=== PATIENT | male | born 1940 | race Caucasian/White ===

== ENCOUNTER → 2018-12-11 08:46 | Outpatient (BNVA) | payer MEDICARE, OTHER, SELFPAY | PROVIDERS: PCP Family Medicine; Visit Provider Urology | DX: R97.20 Elevated prostate specific antigen [PSA] (principal) | CPT/HCPCS: 99213 ==

== ENCOUNTER 2018-12-11 09:56 | Outpatient (CLI) | payer MEDICARE, OTHER, SELFPAY ==
[2018-12-13 11:55] LABS: PSA, Diagnostic 7.5 ng/ml (0-6.5)
== END 2018-12-11 10:16 ==
PROVIDERS: PCP Family Medicine; Visit Provider Urology
DX: R97.20 Elevated prostate specific antigen [PSA] (principal)
CPT/HCPCS: 36415; 99213; 84153

== ENCOUNTER → 2019-01-12 12:19 | Outpatient (BNVA) | payer MEDICARE, OTHER, SELFPAY | PROVIDERS: PCP Family Medicine; Visit Provider Urology | DX: R80.9 Proteinuria, unspecified (principal) | CPT/HCPCS: 99212; 99213 ==

== ENCOUNTER 2019-02-23 01:38 | Outpatient (CLI) | payer MEDICARE, OTHER, SELFPAY ==
--- NOTE | 2019-02-23 14:15 | DI.US_ITS ---
SYMPTOMS/DIAGNOSIS: OBSTRUCTIVE VERSUS MEDICAL RENAL DISEASE RENAL ULTRASOUND: The right kidney measures 10.3 cm long. No evidence of obstruction is seen. There is mild thinning of the cortex. There is a question of an echogenic focus in the mid pole of the right kidney suspicious for a nonobstructing stone. The left kidney measures 11.2 cm long. There is a 1.1 cm simple cyst in the mid pole of the left kidney. No solid renal mass, calculus or obstruction is identified. Prevoid urinary bladder volume is 140 cc. Both ureteral jets are visualized. No intraluminal masses are present. Postvoid urinary bladder volume is 30 cc. The prostatic volume is 48 cc. IMPRESSION: 1. Mild prostate enlargement. 2. Question of a nonobstructing stone in the right kidney. 3. A 1.1 cm simple cyst on the left kidney.
== END 2019-02-23 01:58 ==
PROVIDERS: PCP Family Medicine; Visit Provider Urology
DX: R80.9 Proteinuria, unspecified (principal); N40.0 Benign prostatic hyperplasia without lower urinary tract symptoms; N28.1 Cyst of kidney, acquired
CPT/HCPCS: 76770; 99213

== ENCOUNTER → 2019-06-19 08:06 | Outpatient (BNVA) | payer MEDICARE, OTHER, SELFPAY | PROVIDERS: PCP Family Medicine; Visit Provider Urology | DX: R35.1 Nocturia (principal); R97.20 Elevated prostate specific antigen [PSA]; R80.9 Proteinuria, unspecified; J44.9 Chronic obstructive pulmonary disease, unspecified | CPT/HCPCS: 99213 ==

== ENCOUNTER 2019-12-17 11:06 | Outpatient (CLI) | payer MEDICARE, OTHER, SELFPAY ==
[2019-12-17 11:57] LABS: Bilirubin Negative (Negative); Blood Negative (Negative); Clarity Clear (Clear); Glucose Negative (Negative); Ketones Negative (Negative); Leukocyte Esterase Negative (Negative); Nitrite Negative (Negative); Urobilinogen 0.2 EU/dL (Up TO 0.2); pH 6.5 (5-8)
[2019-12-17 12:10] LABS: Bacteria Rare HPF (Negative); C & S Indicated? Yes; Casts Negative LPF (Negative); Crystals Negative HPF (Negative); Epithelial Cells Rare HPF (Negative); Mucus Trace (Negative); RBC Negative HPF (0-2)
[2019-12-18 10:57] LABS: PSA, Diagnostic 9.7 ng/mL (0.0-6.5)
== END 2019-12-17 11:26 ==
PROVIDERS: PCP Family Medicine; Visit Provider Urology
DX: R80.9 Proteinuria, unspecified (principal); R97.20 Elevated prostate specific antigen [PSA]; Z12.5 Encounter for screening for malignant neoplasm of prostate
CPT/HCPCS: 36415; 81003; 81015; 84153; 87086

== ENCOUNTER → 2020-01-25 13:47 | Outpatient (BNVA) | payer MEDICARE, OTHER, SELFPAY | PROVIDERS: PCP Family Medicine; Referring Provider Family Medicine; Visit Provider Urology | DX: R97.20 Elevated prostate specific antigen [PSA] (principal); N40.1 Benign prostatic hyperplasia with lower urinary tract symptoms; R35.0 Frequency of micturition | CPT/HCPCS: 99213 ==

== ENCOUNTER → 2020-03-25 14:55 | Outpatient (BNVA) | payer MEDICARE, OTHER, SELFPAY | PROVIDERS: PCP Family Medicine; Referring Provider Family Medicine; Visit Provider Urology | DX: R39.9 Unspecified symptoms and signs involving the genitourinary system (principal) | CPT/HCPCS: 99213; 99441 ==

== ENCOUNTER → 2020-06-19 12:39 | Outpatient (BNVA) | payer MEDICARE, OTHER, SELFPAY | PROVIDERS: PCP Family Medicine; Referring Provider Family Medicine; Visit Provider Urology | DX: R31.0 Gross hematuria (principal); Z87.891 Personal history of nicotine dependence; J44.9 Chronic obstructive pulmonary disease, unspecified | CPT/HCPCS: 52000; 99213 ==

== ENCOUNTER → 2020-07-25 13:58 | Outpatient (BNVA) | payer MEDICARE, OTHER, SELFPAY | PROVIDERS: PCP Family Medicine; Referring Provider Family Medicine; Visit Provider Urology | DX: R31.0 Gross hematuria (principal); R39.9 Unspecified symptoms and signs involving the genitourinary system | CPT/HCPCS: 81003; 99213 ==

== ENCOUNTER → 2021-04-14 09:41 | Outpatient (BNVA) | payer MEDICARE, OTHER, SELFPAY | PROVIDERS: PCP Family Medicine; Referring Provider Family Medicine; Visit Provider Nurse Practitioner Gerontology | DX: R31.0 Gross hematuria (principal); R97.20 Elevated prostate specific antigen [PSA]; N40.1 Benign prostatic hyperplasia with lower urinary tract symptoms; R35.0 Frequency of micturition; R39.15 Urgency of urination | CPT/HCPCS: 81003; 99214 ==

== ENCOUNTER 2021-04-14 18:31 | Outpatient (REF) | payer MEDICARE, OTHER, SELFPAY ==
[2021-04-14 17:09] LABS: PSA, Diagnostic 10.6 ng/mL (0.0-6.5)
== END 2021-04-14 18:32 | disposition home or self-care (01) ==
LOC: LBN 18:31
PROVIDERS: PCP Family Medicine; Visit Provider Nurse Practitioner Gerontology
DX: R31.0 Gross hematuria (principal); R39.89 Other symptoms and signs involving the genitourinary system; R97.20 Elevated prostate specific antigen [PSA]
CPT/HCPCS: 84153

== ENCOUNTER 2022-04-15 03:35 | Outpatient (CLI) | payer MEDICARE, OTHER, SELFPAY ==
[2022-04-15 23:07] LABS: PSA, Diagnostic 12.4 ng/mL (<=6.5)
== END 2022-04-15 03:36 | disposition home or self-care (01) ==
PROVIDERS: PCP Family Medicine; Visit Provider Nurse Practitioner Gerontology
DX: R31.0 Gross hematuria (principal); R39.89 Other symptoms and signs involving the genitourinary system; R97.20 Elevated prostate specific antigen [PSA]
CPT/HCPCS: 36415; 84153

== ENCOUNTER → 2022-04-21 15:08 | Outpatient (BNVA) | payer MEDICARE, OTHER, SELFPAY | PROVIDERS: PCP Family Medicine; Referring Provider Family Medicine; Visit Provider Nurse Practitioner Gerontology | DX: N40.1 Benign prostatic hyperplasia with lower urinary tract symptoms (principal); R35.0 Frequency of micturition; R31.0 Gross hematuria; R97.20 Elevated prostate specific antigen [PSA] | CPT/HCPCS: 51798; 81003; 99214 ==

== ENCOUNTER 2022-08-31 01:52 | Outpatient (CLI) | payer MEDICARE, OTHER, SELFPAY ==
[2022-08-31 23:09] LABS: PSA, Diagnostic 14.5 ng/mL (<=6.5)
== END 2022-08-31 01:53 | disposition home or self-care (01) ==
LOC: LBO 01:52
PROVIDERS: PCP Family Medicine; Visit Provider Nurse Practitioner Gerontology
DX: R31.0 Gross hematuria (principal); R39.89 Other symptoms and signs involving the genitourinary system; R97.20 Elevated prostate specific antigen [PSA]
CPT/HCPCS: 36415; 84153

== ENCOUNTER → 2022-09-14 08:15 | Outpatient (BNVA) | payer MEDICARE, OTHER, SELFPAY | PROVIDERS: PCP Family Medicine; Referring Provider Family Medicine; Visit Provider Nurse Practitioner Gerontology | DX: N40.1 Benign prostatic hyperplasia with lower urinary tract symptoms (principal); R97.20 Elevated prostate specific antigen [PSA]; R31.0 Gross hematuria | CPT/HCPCS: 51798; 99214 ==

== ENCOUNTER 2023-02-25 13:41 | Outpatient (CLI) | payer MEDICARE, SELFPAY ==
[2023-02-25 23:18] LABS: PSA, Diagnostic 13.9 ng/mL (<=6.5)
== END 2023-02-25 13:42 | disposition home or self-care (01) ==
PROVIDERS: PCP Family Medicine; Visit Provider Nurse Practitioner Gerontology
DX: R97.20 Elevated prostate specific antigen [PSA] (principal); R39.89 Other symptoms and signs involving the genitourinary system
CPT/HCPCS: 36415; 84153

== ENCOUNTER → 2023-03-08 08:21 | Outpatient (BNVA) | payer MEDICARE, SELFPAY | PROVIDERS: PCP Family Medicine; Visit Provider Nurse Practitioner Gerontology | DX: R39.89 Other symptoms and signs involving the genitourinary system (principal); R31.0 Gross hematuria; R97.20 Elevated prostate specific antigen [PSA] | CPT/HCPCS: 51798; 99213 ==

== ENCOUNTER → 2024-03-27 08:07 | Outpatient (BNVA) | payer MEDICARE, SELFPAY | PROVIDERS: PCP Family Medicine; Referring Provider Family Medicine; Visit Provider Podiatrist | DX: L60.0 Ingrowing nail (principal); L84 Corns and callosities; M79.674 Pain in right toe(s); M79.675 Pain in left toe(s); I70.203 Unspecified atherosclerosis of native arteries of extremities, bilateral legs | CPT/HCPCS: 17110; 99213 ==

== ENCOUNTER → 2024-10-10 14:20 | Outpatient (BNVA) | payer MEDICARE, SELFPAY | PROVIDERS: PCP Family Medicine; Referring Provider Family Medicine; Visit Provider Podiatrist | DX: L60.0 Ingrowing nail (principal); I70.203 Unspecified atherosclerosis of native arteries of extremities, bilateral legs; I73.89 Other specified peripheral vascular diseases; M79.671 Pain in right foot | CPT/HCPCS: 11750 ==

== ENCOUNTER → 2024-10-30 13:09 | Outpatient (BNVA) | payer MEDICARE, SELFPAY | PROVIDERS: PCP Family Medicine; Referring Provider Family Medicine; Visit Provider Podiatrist | DX: L60.0 Ingrowing nail (principal); I70.203 Unspecified atherosclerosis of native arteries of extremities, bilateral legs; I73.89 Other specified peripheral vascular diseases; M79.671 Pain in right foot; B35.1 Tinea unguium | CPT/HCPCS: 99214 ==

== ENCOUNTER → 2025-03-05 12:55 | Outpatient (BNVA) | payer MEDICARE, SELFPAY | PROVIDERS: PCP Family Medicine; Referring Provider Family Medicine; Visit Provider Podiatrist | DX: L60.0 Ingrowing nail (principal); I70.203 Unspecified atherosclerosis of native arteries of extremities, bilateral legs; I73.89 Other specified peripheral vascular diseases; M79.671 Pain in right foot; B35.1 Tinea unguium; R09.89 Other specified symptoms and signs involving the circulatory and respiratory systems; L65.9 Nonscarring hair loss, unspecified; L60.2 Onychogryphosis; L60.8 Other nail disorders | CPT/HCPCS: 11720 ==

== ENCOUNTER → 2025-07-02 13:00 | Outpatient (BNVA) | payer MEDICARE, SELFPAY | PROVIDERS: PCP Family Medicine; Referring Provider Family Medicine; Visit Provider Podiatrist | DX: L60.0 Ingrowing nail (principal); I70.203 Unspecified atherosclerosis of native arteries of extremities, bilateral legs; I73.89 Other specified peripheral vascular diseases; M79.671 Pain in right foot; B35.1 Tinea unguium | CPT/HCPCS: 99213 ==

== ENCOUNTER → 2025-07-30 14:27 | Outpatient (BNVA) | payer MEDICARE, SELFPAY | PROVIDERS: PCP Family Medicine; Referring Provider Family Medicine; Visit Provider Internal Medicine Pulmonary Disease | DX: J44.9 Chronic obstructive pulmonary disease, unspecified (principal); R06.00 Dyspnea, unspecified; Z23 Encounter for immunization | CPT/HCPCS: 36415; 90684; 99215 ==

== ENCOUNTER 2025-07-30 16:04 | Outpatient (REF) | payer MEDICARE, SELFPAY ==
[2025-07-30 16:40] LABS: Abs Immature Grans 0.04 10^3/uL (0.0-0.06); HCT 32.2 % (40.0-50.0); HGB 10.2 g/dL (13.5-17.5); Immature Grans % 0.4 %; MCH 29.9 pg (27.0-33.0); MCHC 31.7 % (32.0-36.0); MCV 94 fL (80-95); MPV 10.4 fL (8.0-11.0); Platelet Count 177 10^3/uL (130-400); RBC 3.41 10^6/uL (4.36-5.78); RDW 14.6 % (11.8-14.1); RDW-SD 50.8 fL; WBC 9.65 10^3/uL (4.4-10.8)
== END 2025-07-30 16:05 | disposition home or self-care (01) ==
LOC: NCHCN 16:04
PROVIDERS: Internal Medicine Pulmonary Disease; PCP Family Medicine; Visit Provider Family Medicine
DX: J44.9 Chronic obstructive pulmonary disease, unspecified (principal)
CPT/HCPCS: 85025

== ENCOUNTER → 2025-11-05 13:00 | Outpatient (BNVA) | payer MEDICARE, SELFPAY | PROVIDERS: PCP Family Medicine; Referring Provider Family Medicine; Visit Provider Podiatrist | DX: B35.1 Tinea unguium (principal); L60.0 Ingrowing nail; M79.671 Pain in right foot; I73.89 Other specified peripheral vascular diseases; I70.203 Unspecified atherosclerosis of native arteries of extremities, bilateral legs; R09.89 Other specified symptoms and signs involving the circulatory and respiratory systems; R60.0 Localized edema; L65.9 Nonscarring hair loss, unspecified; L60.2 Onychogryphosis; L60.8 Other nail disorders; L60.1 Onycholysis | CPT/HCPCS: 11720 ==